=== PATIENT | male | born 1950 | race Caucasian/White ===

== ENCOUNTER 2020-01-15 16:50 | Observation (INO) | payer MEDICARE, BC ==
--- NOTE | 2020-01-15 17:21 | ED ---
General Adult HPI - General Chief complaint: Chest Pain Stated complaint: CHEST PAIN Time Seen by Provider: 01/15/20 17:15 Source: patient Mode of arrival: wheelchair Limitations: no limitations - History of Present Illness Initial comments: Patient presents the ED with his for evaluation. Patient states that he has had 3 bouts of exertional chest pain over the past 3 days. Patient states that his most recent bout was about 45 minutes ago. Patient describes these bouts of chest pain as diffuse chest tightness radiating to his bilateral arms. Patient states that he was also diaphoretic with one of his bouts of chest pain. Patient denies having any other associated symptoms. Patient denies having any chest pain or any symptoms at all currently. Patient denies trauma or injury, fever or chills, headache, focal neuro deficit, neck/jaw pain, back pain, pleuritic pain, dyspnea, cough or cold symptoms, palpitations, dizziness, nausea/vomiting, abdominal pain, leg or calf swelling or pain, or any other symptoms or complaints. Patient has cardiac risk factors of hyperlipidemia and occasional cigar smoking. - Related Data Allergies Allergy/AdvReac Type Severity Reaction Status Date / Time No Known Allergies Allergy Verified 01/15/20 16:59 Review of Systems ROS Statement: Those systems with pertinent positive or pertinent negative responses have been documented in the HPI. ROS Other: All systems not noted in ROS Statement are negative. Past Medical History Past Medical History: Hyperlipidemia History of Any Multi-Drug Resistant Organisms: None Reported Past Surgical History: No Surgical Hx Reported Past Psychological History: No Psychological Hx Reported Smoking Status: Current some day smoker Past Alcohol Use History: Occasional Past Drug Use History: None Reported General Exam Limitations: no limitations General appearance: alert, in no apparent distress Head exam: Present: atraumatic, normocephalic Eye exam: Present: normal appearance, EOMI ENT exam: Present: mucous membranes moist Neck exam: Present: other (Trachea is in midline) Respiratory exam: Present: normal lung sounds bilaterally. Absent: respiratory distress, wheezes, rales, rhonchi, stridor, chest wall tenderness Cardiovascular Exam: Present: regular rate, normal rhythm, normal heart sounds, other (Normal radial pulses bilaterally) GI/Abdominal exam: Present: soft. Absent: distended, tenderness, guarding Extremities exam: Present: other (Negative Homans sign bilaterally). Absent: tenderness, pedal edema, calf tenderness Neurological exam: Present: alert, oriented X3. Absent: motor sensory deficit Psychiatric exam: Present: normal affect, normal mood Skin exam: Present: warm, dry, intact, normal color Course Vital Signs 01/15/20 16:55 Temperature 98.5 F Pulse Rate 75 Respiratory 16 Rate Blood Pressure 133/85 O2 Sat by Pulse 96 Oximetry - Reevaluation(s) Reevaluation #1: 01/15/20 18:49 Case, H&P, test results and ED management were discussed with Dr. Beavers (hospitalist). She accepts hospital admission. She agrees with placing an order for cardiology consultation. She has no further recommendations at this time. 01/15/20 18:52 Patient continues to deny having any chest pain or symptoms while in the ED. Patient remains alert and breathing comfortably. Patient remains in sinus rhythm on the surveillance monitor. Patient and are aware the patient's test results, and patient agrees with hospital admission at this time. EKG Findings - EKG Comments: EKG Findings:: Sinus rhythm with borderline first-degree AV block, ventricular rate of 72 bpm, no ectopy, OH interval of 204 ms, right bundle branch block, QRS duration of 138 ms, normal QT interval, leftward axis, moderate voltage criteria for LVH Medical Decision Making - Medical Decision Making Patient has a heart score 4. Patient has been chest pain-free while in the ED. Patient's initial troponin is negative. Patient's chest x-ray is unremarkable. Dr. Beavers has accepted hospital admission for further evaluation of the patient's chest pain. - Lab Data Result diagrams: 01/15/20 17:37 01/15/20 17:37 Lab Results 01/15/20 01/15/20 01/15/20 Range/Units 17:37 17:37 17:37 WBC 8.9 (3.8-10.6) k/uL RBC 4.94 (4.30-5.90) m/uL Hgb 16.2 (13.0-17.5) gm/dL Hct 47.1 (39.0-53.0) % MCV 95.4 (80.0-100.0) fL MCH 32.8 (25.0-35.0) pg MCHC 34.4 (31.0-37.0) g/dL RDW 12.4 (11.5-15.5) % Plt Count 190 (150-450) k/uL Neutrophils % 65 % Lymphocytes % 27 % Monocytes % 4 % Eosinophils % 1 % Basophils % 1 % Neutrophils # 5.8 (1.3-7.7) k/uL Lymphocytes # 2.4 (1.0-4.8) k/uL Monocytes # 0.4 (0-1.0) k/uL Eosinophils # 0.1 (0-0.7) k/uL Basophils # 0.1 (0-0.2) k/uL PT 10.3 (9.0-12.0) sec INR 1.0 (<1.2) APTT 22.8 (22.0-30.0) sec Sodium 138 (137-145) mmol/L Potassium 4.4 (3.5-5.1) mmol/L Chloride 108 H (98-107) mmol/L Carbon Dioxide 24 (22-30) mmol/L Anion Gap 6 mmol/L BUN 19 (9-20) mg/dL Creatinine 1.00 (0.66-1.25) mg/dL Est GFR (CKD-EPI)AfAm 88 (>60 ml/min/1.73 sqM) Est GFR (CKD-EPI)NonAf 76 (>60 ml/min/1.73 sqM) Glucose 104 H (74-99) mg/dL Calcium 9.0 (8.4-10.2) mg/dL Magnesium 2.2 (1.6-2.3) mg/dL Total Bilirubin 0.8 (0.2-1.3) mg/dL AST 47 (17-59) U/L ALT 36 (4-49) U/L Alkaline Phosphatase 49 (38-126) U/L Troponin I (0.000-0.034) ng/mL NT-Pro-B Natriuret Pep pg/mL Total Protein 6.8 (6.3-8.2) g/dL Albumin 4.1 (3.5-5.0) g/dL 01/15/20 01/15/20 Range/Units 17:37 17:37 WBC (3.8-10.6) k/uL RBC (4.30-5.90) m/uL Hgb (13.0-17.5) gm/dL Hct (39.0-53.0) % MCV (80.0-100.0) fL MCH (25.0-35.0) pg MCHC (31.0-37.0) g/dL RDW (11.5-15.5) % Plt Count (150-450) k/uL Neutrophils % % Lymphocytes % % Monocytes % % Eosinophils % % Basophils % % Neutrophils # (1.3-7.7) k/uL Lymphocytes # (1.0-4.8) k/uL Monocytes # (0-1.0) k/uL Eosinophils # (0-0.7) k/uL Basophils # (0-0.2) k/uL PT (9.0-12.0) sec INR (<1.2) APTT (22.0-30.0) sec Sodium (137-145) mmol/L Potassium (3.5-5.1) mmol/L Chloride (98-107) mmol/L Carbon Dioxide (22-30) mmol/L Anion Gap mmol/L BUN (9-20) mg/dL Creatinine (0.66-1.25) mg/dL Est GFR (CKD-EPI)AfAm (>60 ml/min/1.73 sqM) Est GFR (CKD-EPI)NonAf (>60 ml/min/1.73 sqM) Glucose (74-99) mg/dL Calcium (8.4-10.2) mg/dL Magnesium (1.6-2.3) mg/dL Total Bilirubin (0.2-1.3) mg/dL AST (17-59) U/L ALT (4-49) U/L Alkaline Phosphatase (38-126) U/L Troponin I <0.012 (0.000-0.034) ng/mL NT-Pro-B Natriuret Pep 87 pg/mL Total Protein (6.3-8.2) g/dL Albumin (3.5-5.0) g/dL - Radiology Data Radiology results: image reviewed (Chest x-ray is negative) Disposition Clinical Impression: Chest pain Disposition: ADMITTED IP TO THIS [facility] Condition: Stable Is patient prescribed a controlled substance at d/c from ED?: No Referrals: Werner Seymour DO [Primary Care Provider] - 1-2 days Time of Disposition: 18:50
[2020-01-15] MEDS ORDERED: ASPIRIN 81 MG PO STA (17:30)
[2020-01-15 17:51] LABS: Basophils # (A) 0.1 k/uL (0-0.2); Basophils % (A) 1 %; Eosinophils # (A) 0.1 k/uL (0-0.7); Eosinophils % (A) 1 %; HCT 47.1 % (39.0-53.0); HGB 16.2 gm/dL (13.0-17.5); Lymphocytes # (A) 2.4 k/uL (1.0-4.8); Lymphocytes % (A) 27 %; MCH 32.8 pg (25.0-35.0); MCHC 34.4 g/dL (31.0-37.0); MCV 95.4 fL (80.0-100.0); Mean Platelet Volume 7.3; Monocytes # (A) 0.4 k/uL (0-1.0); Monocytes % (A) 4 %; Neutrophils # (A) 5.8 k/uL (1.3-7.7); Neutrophils % (A) 65 %; Platelet Count 190 k/uL (150-450); RBC 4.94 m/uL (4.30-5.90); RDW 12.4 % (11.5-15.5); WBC 8.9 k/uL (3.8-10.6)
[2020-01-15 18:11] LABS: Albumin 4.1 g/dL (3.5-5.0); Magnesium 2.2 mg/dL (1.6-2.3); Potassium 4.4 mmol/L (3.5-5.1); Total Bilirubin 0.8 mg/dL (0.2-1.3); Total Protein 6.8 g/dL (6.3-8.2)
[2020-01-15 18:17] LABS: Partial Thromboplastin Time 22.8 sec (22.0-30.0); Prothrombin Time 10.3 sec (9.0-12.0)
--- NOTE | 2020-01-15 18:26 | XR ---
EXAMINATION TYPE: XR chest 2V DATE OF EXAM: 01/15/2020 COMPARISON: NONE HISTORY: Pain TECHNIQUE: 2 views FINDINGS: Heart and mediastinum are normal. Lungs are clear. Diaphragm is normal. Bony thorax is inta ct. There are chest leads. IMPRESSION: Normal chest.
--- NOTE | 2020-01-15 21:06 | P.HPIM ---
History of Present Illness H&P Date: 01/15/20 The patient is a 69-year-old male with a PMH of HLD who presented to the ED with complaints of intermittent substernal chest discomfort. Patient reports that he initially had his symptoms 3 days ago while he was washing his nose on a L foot ladder at his home. He developed substernal pressure-like discomfort, unable to quantify, with radiation to the left arm which lasted for 1-2 minutes and res olved spontaneously. He then had similar symptoms yesterday while he was walking up the stairs on his porch, lasting 10-20 seconds and resolved spontaneously. Earlier today however he was sitting down watching television with his when he developed the pain again, but was this time associated with some lightheadedness, resolving within a minute spontaneously. The patient denied experiencing shortness of breath, nausea, diaphoresis, or palpitations during any of the above episodes. He also denied any additional complaints including fever, chills, cough, and abdominal pain, or diarrhea. Patient denied family history of CAD and denied ever having such symptoms in the past. In the emergency room, an EKG revealed normal sinus rhythm at 72 bpm with left axis deviation and right bundle branch block. Chest x-ray was unremarkable. Laboratory evaluation was reviewed with troponin I less than 0.012. Review of Systems Pertinent positives and negatives as discussed in HPI, a complete review of systems was performed and all other systems are negative. Past Medical History Past Medical History: Hyperlipidemia History of Any Multi-Drug Resistant Organisms: None Reported Past Surgical History: No Surgical Hx Reported Past Psychological History: No Psychological Hx Reported Smoking Status: Former smoker Past Alcohol Use History: Occasional Past Drug Use History: None Reported Medications and Allergies Home Medications Medication Instructions Recorded Confirmed Type Atorvastatin [Lipitor] 10 mg PO DAILY 01/15/20 01/15/20 History Multivit-Min/Folic/Vit K/Lycop 1 tab PO DAILY 01/15/20 01/15/20 History [Men's Multivitamin Tablet] Zinc 50 mg PO DAILY 01/15/20 01/15/20 History Allergies Allergy/AdvReac Type Severity Reaction Status Date / Time No Known Allergies Allergy Verified 01/15/20 16:59 Physical Exam Vitals: Vital Signs Temp Pulse Pulse Resp BP BP Pulse Ox 01/15/20 20:30 98 F 57 L 16 138/72 95 01/15/20 18:30 61 17 151/75 94 L 01/15/20 18:00 146/79 01/15/20 17:49 65 18 150/85 94 L 01/15/20 16:55 98.5 F 75 16 133/85 96 Intake and Output 01/15/20 01/15/20 01/15/20 06:59 14:59 22:59 Other: # Voids 1 # Bowel Movements 1 Weight 87.09 kg General: non toxic, no distress, appears at stated age, normal weight Derm: no unusual rashes/lesions no unusual ecchymoses, warm, dry Head: atraumatic, normocephalic, symmetric Eyes: EOMI, no lid lag, anicteric sclera, pupils equal round reactive to light ENT: Nose and ears atraumatic, no thrush, no pharyngeal erythema Neck: No thyromegaly, no cervical lymphadenopathy, trachea midline, supple Mouth: no lip lesion, mucus membranes moist Cardiovascular: S1S2 reg, no murmur, positive posterior tibial pulse bilateral, no edema, capillary refill less than 2 seconds Lungs: CTA bilateral, no rhonchi, no rales , no accessory muscle use Abdominal: soft, nontender to palpation, no guarding, no appreciable organomegaly, normal bowel sounds Ext: no gross muscle atrophy, muscle strength 5 out of 5 in all 4 extremities grossly, no contractures, Neuro: CN II-XI grossly intact, light touch intact all 4 extremities, finger to nose within normal limits, Psych: Alert, oriented, appropriate affect Results CBC & Chem 7: 01/15/20 17:37 01/15/20 17:37 Labs: Abnormal Lab Results - Last 24 Hours (Table) 01/15/20 Range/Units 17:37 Chloride 108 H (98-107) mmol/L Glucose 104 H (74-99) mg/dL Thrombosis Risk Factor Assmnt - Choose All That Apply Each Factor Represents 1 point: Age 41-60 years Thrombosis Risk Factor Assessment Total Risk Factor Score: 1 Thrombosis Risk Factor Assessment Level: Low Risk Assessment and Plan Plan: Chest pain, r/o ACS -Cardiology consult -Cardiac monitoring -Trend troponin -C/w Aspirin, Statin HLD -C/w home statin DVT prophylaxis -Heparin subq The patient is admitted with an anticipated less than 2 midnight stay for evaluation of chest pain CODE STATUS: Full Code Discussed with: Patient Anticipated discharge date: in am Anticipated discharge place:Home A total of 35 minutes was spent on the care of this complex patient more than 50% of the time was spent in counseling and care coordination.
[2020-01-16 05:31] LABS: Basophils % (A) 0 %; Eosinophils # (A) 0.1 k/uL (0-0.7); Eosinophils % (A) 1 %; HCT 43.8 % (39.0-53.0); HGB 14.3 gm/dL (13.0-17.5); Lymphocytes % (A) 34 %; MCH 30.6 pg (25.0-35.0); MCHC 32.7 g/dL (31.0-37.0); MCV 93.4 fL (80.0-100.0); Mean Platelet Volume 6.8; Monocytes # (A) 0.3 k/uL (0-1.0); Monocytes % (A) 6 %; Neutrophils # (A) 3.4 k/uL (1.3-7.7); Neutrophils % (A) 57 %; Platelet Count 172 k/uL (150-450); RBC 4.69 m/uL (4.30-5.90); RDW 12.8 % (11.5-15.5)
[2020-01-16 05:39] LABS: Albumin 3.5 g/dL (3.5-5.0); Calcium 8.7 mg/dL (8.4-10.2); Total Bilirubin 0.4 mg/dL (0.2-1.3); Total Protein 5.6 g/dL (6.3-8.2)
[2020-01-16] MEDS: ATORVASTATIN 10 MG TAB PO SCH (08:44)
[2020-01-16] MEDS: HEPARIN SODIUM,PORCINE 5,000 UNIT/ML 1 ML VIAL SQ SCH ×2 (08:44→15:45)
--- NOTE | 2020-01-16 12:41 | P.CRDCN ---
<Luna Obrien A - Last Filed: 01/16/20 12:45> History of Present Illness Consult date: 01/16/20 Consult reason: chest pain History of present illness: History of present illness: This is a 69-year-old male with past medical history of hyperlipidemia, remote history of tobacco use. He denies any cardiac history and does not follow with the consulting sme. He has never had a stress test or heart catheterization. Patient had an episode 3 days ago when he was washing up her windows on the outside of his house. He develops midsternal chest pain that radiated to both arms and lasted about 1-2 minutes and resolved on its own. He had 2 more episodes, one while walking upstairs and the second while at rest watching TV. He did have some lightheadedness dizziness and diaphoresis at the time of the episodes. Patient denies any symptoms at the time of this evaluation. Updated patient's PCP/[id number]-soe her family request. He is requesting Dr. Galeano performed heart catheterization if indicated. He is requesting a call back. Patient came into [facility] emergency center for evaluation. He was afebrile, heart rate 75, blood pressure 133/85, pulse ox 96% on room air. EKG is a sinus rhythm at 72 bpm, right bundle branch block CBC unremarkable. Electrolytes unremarkable, creatinine 1. Blood sugar 104. Liver function tests are normal. ProBNP 87. Troponins negative on 3 draws. Chest x-ray is normal. (PCP: Dr. Wernre Seymour [phone]) Review Of Systems: At the time of my evaluation: Constitutional: No fever, no chills. No weakness, fatigue or lethargy. EENT: No headache. No dizziness. Lungs: No shortness of breath, cough, no sputum production. No wheezing. Cardiovascular: No chest pain, no lower extremity edema. No palpitations. No paroxysmal nocturnal dyspnea. No orthopnea. No lightheadedness or dizziness. No syncopal episodes. Abdominal: No abdominal pain. No nausea, vomiting. Musculoskeletal: No myalgias. No muscle weakness. Integumentary: No wounds, No unusual bruising. Neurologic: No aphasia. No facial droop. No change in mentation. No head injury. Physical examination: Gen: This is a 69-year-old male. He is resting in bed appears be comfortable and in no acute distress. VS: Afebrile, heart rate 59, blood pressure 132/80, pulse ox 97% on room air. Oral mucous membranes are moist. HEENT: Head is atraumatic, normocephalic. Pupils equal, round. Sclerae is anicteric. NECK: Supple. No JVD. No lymphadenopathy. No thyromegaly. LUNGS: Clear to auscultation. No wheezes or rhonchi. No intercostal retractions. HEART: Regular rate and rhythm. No murmur. ABDOMEN: Soft. Bowel sounds are present. No masses. No tenderness. EXTREMITIES: No pedal edema. No calf tenderness. Dorsalis pedis +2 bila terally. NEUROLOGICAL: Patient is awake, alert and oriented x3. Cranial nerves 2 through 12 are grossly intact. Assessment: Chest pain with symptoms concerning for coronary artery disease with negative troponins Hyperlipidemia Plan: Continue atorvastatin Obtain 2-D echocardiogram and Doppler study to assess cardiac structure and function Further recommendations to follow based upon clinical course Thank you kindly for this consultation. Nurse practitioner note has been reviewed, I agree with documented findings and plan of care. Patient was seen and examined. Past Medical History Past Medical History: Hyperlipidemia History of Any Multi-Drug Resistant Organisms: None Reported Past Surgical History: No Surgical Hx Reported Past Psychological History: No Psychological Hx Reported Smoking Status: Former smoker Past Alcohol Use History: Occasional Past Drug Use History: None Reported Medications and Allergies Home Medications Medication Instructions Recorded Confirmed Type Atorvastatin [Lipitor] 10 mg PO DAILY 01/15/20 01/15/20 History Multivit-Min/Folic/Vit K/Lycop 1 tab PO DAILY 01/15/20 01/15/20 History [Men's Multivitamin Tablet] Zinc 50 mg PO DAILY 01/15/20 01/15/20 History Allergies Allergy/AdvReac Type Severity Reaction Status Date / Time No Known Allergies Allergy Verified 01/15/20 16:59 Physical Exam Vitals: Vital Signs Temp Pulse Pulse Resp BP BP Pulse Ox 01/16/20 09:00 16 01/16/20 08:25 97.9 F 59 L 16 132/80 97 01/16/20 03:00 97.7 F 53 L 16 120/70 97 01/15/20 21:00 57 L 16 01/15/20 20:30 98 F 57 L 16 138/72 95 01/15/20 18:30 61 17 151/75 94 L 01/15/20 18:00 146/79 01/15/20 17:49 65 18 150/85 94 L 01/15/20 16:55 98.5 F 75 16 133/85 96 Intake and Output 01/15/20 01/16/20 01/16/20 22:59 06:59 14:59 Intake Total 100 Balance 100 Intake: Oral 100 Other: Voiding Method Toilet Toilet Toilet # Voids 1 1 # Bowel Movements 1 1 Weight 87.09 kg Results 01/16/20 04:55 01/16/20 04:55 Cardiac Enzymes 01/15/20 01/15/20 01/15/20 Range/Units 17:37 17:37 20:31 AST 47 (17-59) U/L Troponin I <0.012 <0.012 (0.000-0.034) ng/mL 01/15/20 01/16/20 Range/Units 23:44 04:55 AST 44 (17-59) U/L Troponin I <0.012 (0.000-0.034) ng/mL Coagulation 01/15/20 Range/Units 17:37 PT 10.3 (9.0-12.0) sec APTT 22.8 (22.0-30.0) sec CBC 01/15/20 01/16/20 Range/Units 17:37 04:55 WBC 8.9 6.0 (3.8-10.6) k/uL RBC 4.94 4.69 (4.30-5.90) m/uL Hgb 16.2 14.3 (13.0-17.5) gm/dL Hct 47.1 43.8 (39.0-53.0) % Plt Count 190 172 (150-450) k/uL Comprehensive Metabolic Panel 01/15/20 01/16/20 Range/Units 17:37 04:55 Sodium 138 138 (137-145) mmol/L Potassium 4.4 4.0 (3.5-5.1) mmol/L Chloride 108 H 109 H (98-107) mmol/L Carbon Dioxide 24 26 (22-30) mmol/L BUN 19 18 (9-20) mg/dL Creatinine 1.00 1.01 (0.66-1.25) mg/dL Glucose 104 H 113 H (74-99) mg/dL Calcium 9.0 8.7 (8.4-10.2) mg/dL AST 47 44 (17-59) U/L ALT 36 41 (4-49) U/L Alkaline Phosphatase 49 50 (38-126) U/L Total Protein 6.8 5.6 L (6.3-8.2) g/dL Albumin 4.1 3.5 (3.5-5.0) g/dL Current Medications Generic Name Dose Route Start Last Admin Trade Name Freq PRN Reason Stop Dose Admin Atorvastatin Calcium 10 mg 01/16/20 09:00 01/16/20 08:44 Atorvastatin 10 Mg Tab PO 10 mg DAILY CONNOR Administration Heparin Sodium (Porcine) 5,000 unit 01/16/20 08:00 01/16/20 08:44 Heparin Sodium,Porcine 5,000 Unit/Ml 1 Ml Vial SQ 5,000 unit Q8HR CONNOR Administration Intake and Output 01/15/20 01/16/20 01/16/20 22:59 06:59 14:59 Intake Total 100 Balance 100 Intake: Oral 100 Other: Voiding Method Toilet Toilet Toilet # Voids 1 1 # Bowel Movements 1 1 Weight 87.09 kg 01/16/20 04:55 01/16/20 04:55 <Colton Teixeira - Last Filed: 01/16/20 15:49> History of Present Illness History of present illness: Overall somewhat atypical symptoms with 3 episodes over the last week each lasting approximately 30 seconds to 1 minute. Episode was associated with shortness breath, diaphoresis and possible lightheadedness. He has however been able to exercise without difficulty in between these episodes which is not typical of angina. Acute coronary syndrome has been ruled out. We will check a exercise stress echo to rule out significant coronary artery disease. Possible consideration of arrhythmia with some of his symptoms occurring at rest and may consider outpatient event monitor. 2-D echo reviewed with normal ejection fr action without significant valvular disease. If stress test normal, patientmay be discharged home with outpatient follow-up. Spoke with patient's primary doctor, Dr. Seymour over the phone and agreeable with plan. Colton Teixeira D.O. Physical Exam Vitals: Vital Signs Temp Pulse Pulse Resp BP BP Pulse Ox 01/16/20 15:00 97.8 F 58 L 20 135/75 95 01/16/20 09:00 16 01/16/20 08:25 97.9 F 59 L 16 132/80 97 01/16/20 03:00 97.7 F 53 L 16 120/70 97 01/15/20 21:00 57 L 16 01/15/20 20:30 98 F 57 L 16 138/72 95 01/15/20 18:30 61 17 151/75 94 L 01/15/20 18:00 146/79 01/15/20 17:49 65 18 150/85 94 L 01/15/20 16:55 98.5 F 75 16 133/85 96 Intake and Output 01/16/20 01/16/20 01/16/20 06:59 14:59 22:59 Intake Total 100 Balance 100 Intake: Oral 100 Other: Voiding Method Toilet Toilet # Voids 1 1 # Bowel Movements 1 Results 01/16/20 04:55 01/16/20 04:55 Cardiac Enzymes 01/15/20 01/15/20 01/15/20 Range/Units 17:37 17:37 20:31 AST 47 (17-59) U/L Troponin I <0.012 <0.012 (0.000-0.034) ng/mL 01/15/20 01/16/20 Range/Units 23:44 04:55 AST 44 (17-59) U/L Troponin I <0.012 (0.000-0.034) ng/mL Coagulation 01/15/20 Range/Units 17:37 PT 10.3 (9.0-12.0) sec APTT 22.8 (22.0-30.0) sec CBC 01/15/20 01/16/20 Range/Units 17:37 04:55 WBC 8.9 6.0 (3.8-10.6) k/uL RBC 4.94 4.69 (4.30-5.90) m/uL Hgb 16.2 14.3 (13.0-17.5) gm/dL Hct 47.1 43.8 (39.0-53.0) % Plt Count 190 172 (150-450) k/uL Comprehensive Metabolic Panel 01/15/20 01/16/20 Range/Units 17:37 04:55 Sodium 138 138 (137-145) mmol/L Potassium 4.4 4.0 (3.5-5.1) mmol/L Chloride 108 H 109 H (98-107) mmol/L Carbon Dioxide 24 26 (22-30) mmol/L BUN 19 18 (9-20) mg/dL Creatinine 1.00 1.01 (0.66-1.25) mg/dL Glucose 104 H 113 H (74-99) mg/dL Calcium 9.0 8.7 (8.4-10.2) mg/dL AST 47 44 (17-59) U/L ALT 36 41 (4-49) U/L Alkaline Phosphatase 49 50 (38-126) U/L Total Protein 6.8 5.6 L (6.3-8.2) g/dL Albumin 4.1 3.5 (3.5-5.0) g/dL Current Medications Generic Name Dose Route Start Last Admin Trade Name Freq PRN Reason Stop Dose Admin Aspirin 81 mg 01/17/20 09:00 Aspirin 81 Mg PO DAILY [facility] Atorvastatin Calcium 10 mg 01/16/20 09:00 01/16/20 08:44 Atorvastatin 10 Mg Tab PO 10 mg DAILY [facility]NOR Administration Heparin Sodium (Porcine) 5,000 unit 01/16/20 08:00 01/16/20 15:45 Heparin Sodium,Porcine 5,000 Unit/Ml 1 Ml Vial SQ 5,000 unit Q8HR CONNOR Administration Intake and Output 01/16/20 01/16/20 01/16/20 06:59 14:59 22:59 Intake Total 100 Balance 100 Intake: Oral 100 Other: Voiding Method Toilet Toilet # Voids 1 1 # Bowel Movements 1 01/16/20 04:55 01/16/20 04:55
[2020-01-16] MEDS ORDERED: ASPIRIN 81 MG PO STA (13:17)
--- NOTE | 2020-01-16 17:00 | ECHOF ---
Referral Reason:LVF MEASUREMENTS -------- HEIGHT: 177.8 cm WEIGHT: 87.1 kg BP: 132/80 RVIDd: 4.5 cm (< 3.3) IVSd: 1.4 cm (0.6 - 1.1) LVIDd: 4.6 cm (3.9 - 5.3) LVPWd: 1.2 cm (0.6 - 1.1) IVSs: 1.9 cm LVIDs: 2.4 cm LVPWs: 1.9 cm LAESV Index (A-L): 20.39 ml/m Ao Diam: 3.5 cm (2.0 - 3.7) AV Cusp: 2.3 cm (1.5 - 2.6) MV EXCURSION: 23.279 mm (> 18.000) MV EF SLOPE: 50 mm/s (70 - 150) EPSS: 0.2 cm MV E Rito: 0.44 m/s MV DecT: 325 ms MV A Rito: 0.58 m/s MV E/A Ratio: 0.76 RAP: 5.00 mmHg RVSP: 26.35 mmHg FINDINGS -------- This was a technically adequate study. The left ventricular size is normal. Overall left ventricular systolic function is normal with, an EF between 55 - 60 %. The diastolic filling pattern is normal for the age of the patient 7.04. The right ventricle is mildly enlarged. Normal LA size by volume 22+/-6 ml/m2. The right atrium is normal in size. Interatrial and interventricular septum intact. The aortic valve is trileaflet and appears structurally normal. There is no evidence of aortic regu rgitation. There is no evidence of aortic stenosis. There is trace mitral regurgitation. Mild tricuspid regurgitation present. There is no evidence of pulmonary hypertension. The right v entricular systolic pressure, as measured by Doppler, is 26.35mmHg. There is no pulmonic regurgitation present. The aortic root size is normal. Normal inferior vena cava with normal inspiratory collapse consistent with estimated right atrial pre ssure of 5 mmHg. There is no pericardial effusion. CONCLUSIONS -------- 1. The left ventricular size is normal. 2. Overall left ventricular systolic function is normal with, an EF between 55 - 60 %. 3. There is trace mitral regurgitation. 4. Mild tricuspid regurgitation present. NURSES SUPERVISOR: Yoselin Owens RDCS
--- NOTE | 2020-01-16 17:14 | P.PN ---
Subjective Progress Note Date: 01/16/20 Principal diagnosis: Chest pain Patient is doing well today. He denies any chest pain or discomfort. No acute events overnight. Objective - Vital Signs Vital signs: Vital Signs Temp 97.8 F 01/16/20 15:00 Pulse 58 L 01/16/20 15:00 Resp 20 01/16/20 15:00 BP 135/75 01/16/20 15:00 Pulse Ox 95 01/16/20 15:00 Intake & Output 01/15/20 01/16/20 01/16/20 18:59 06:59 18:59 Intake Total 100 Balance 100 Weight 87.09 kg 87.09 kg Intake: Oral 100 Other: Voiding Method Toilet Toilet # Voids 1 1 # Bowel Movements 1 - Exam General: The patient is awake and alert, in no distress Eye: there is normal conjunctiva bilaterally. Neck: The neck is supple, there is no JVD. Cardiovascular: Normal S1-S2, no S3-S4, no murmurs. Respiratory: Lungs clear to auscultation bilaterally Gastrointestinal: Abdomen is soft, nontender Musculoskeletal: There is no pedal edema. Neurological:. Speech is normal. Skin: Skin is warm and dry - Labs CBC & Chem 7: 01/16/20 04:55 01/16/20 04:55 Labs: Abnormal Lab Results - Last 24 Hours (Table) 01/15/20 01/16/20 Range/Units 17:37 04:55 Chloride 108 H 109 H (98-107) mmol/L Glucose 104 H 113 H (74-99) mg/dL Total Protein 5.6 L (6.3-8.2) g/dL Assessment and Plan Assessment: This is a 69-year-old male with past medical history significant for hyperlipidemia who presented to the emergency room with chest pain. Patient is currently placed on observation for further management of his medical problems noted below. 1. Chest pain: Twelve-lead EKG showed no acute ischemic changes. Serial troponin negative 3 sets. Echocardiogram showed preserved ejection fraction with no significant valvular abnormality. Patient was seen and evaluated by cardiology. Plan for cardiac stress test in the morning. 2. Hyperlipidemia: On Lipitor. Fasting lipid profile in the morning 3. DVT prophylaxis with subcu heparin
[2020-01-16 22:21] LABS: Cholesterol 153 mg/dL (<200); HDL Cholesterol 43 mg/dL (40-60); LDL Cholesterol,Calculated 46 mg/dL (0-99); Triglycerides 318 mg/dL (<150)
[2020-01-17] MEDS: HEPARIN SODIUM,PORCINE 5,000 UNIT/ML 1 ML VIAL SQ SCH ×2 (00:08→08:40)
[2020-01-17] MEDS: ATORVASTATIN 10 MG TAB PO SCH (08:40)
[2020-01-17 08:52] VITALS: BP 145/76; PULSE 60; RESP 16; TEMP 97.7
[2020-01-17] MEDS ORDERED: ASPIRIN 81 MG PO SCH (09:00)
--- NOTE | 2020-01-17 09:30 | PN ---
PROGRESS NOTE Mr. Irizarry is a 69-year-old male with a history of hyperlipidemia, who presented with symptoms of chest discomfort. His cardiac enzymes were unremarkable. He had an echocardiogram performed that revealed a preserved ventricular size and systolic function. He is feeling well this morning. He is denying any chest pain. He denies any dizziness or palpitation. He denies any nausea. He continues to be at this time on aspirin once a day, Lipitor 10 mg daily. PHYSICAL EXAMINATION: Blood pressure 138/70 with a heart rate in the 60s. LUNGS: Clear, regular rate and rhythm, S1, S2. No S3. No rub. ABDOMEN: Soft, nontender. EXTREMITIES: No edema. IMPRESSION: 1. Chest discomfort of unclear etiology, has atypical features for ischemic heart disease. 2. Hyperlipidemia. RECOMMENDATION: Will proceed with stress echocardiogram today. If there is no evidence of stress- induced ischemia, then no further cardiac workup will be needed. MMODL / IJN: [id number] /
--- NOTE | 2020-01-17 12:22 | ECHOS ---
STRESS ECHOCARDIOGRAM INDICATIONS: Chest pain. MEDICATIONS: Atorvastatin. BASELINE HEART RATE: 73 BASELINE BLOOD PRESSURE: 142/78 MAXIMUM HEART RATE: 149 MAXIMUM BLOOD PRESSURE: 219/78 85% MPHR: 128 100% MPHR: 150 METS: 11.7 MAXIMUM STAGE REACHED: 4 TOTAL EXERCISE TIME: 10:00 CLINICAL INFORMATION: Baseline rhythm is sinus mechanism, rate of 73, right bundle branch block. Baseline blood pressure 142/78 mmHg. Patient exercised on Crescencio protocol for 10 minutes, reaching peak rate of 149 beats per minute which is equal to 99% of maximum predicted heart rate. Peak blood pressure 219/78 mmHg. Test was terminated due to fatigue. There was no chest pain. Electrocardiograph monitoring revealed no evidence of diagnostic ischemic ST deviation. FINDINGS: Baseline echocardiogram revealed normal wall motion. At peak exercise, there was normal wall motion augmentation with no hypokinesis or dyskinesis. CONCLUSION: 1. Good exercise tolerance with rare PVCs and no evidence of diagnostic ischemic ST deviation. 2. Normal stress echocardiogram with no evidence of stress-induced ischemia. MMODL / IJN: [id number] /
--- NOTE | 2020-01-17 12:57 | P.DS ---
Providers Date of admission: 01/15/20 18:50 Expected date of discharge: 01/17/20 Attending physician: Tammy Catalan DO Consults: 01/15/20 18:51 Consult Physician Urgent Consulting Provider: Gera Galeano Consult Reason/Comments: chest pain Do you want consulting provider notified?: Yes Primary care physician: Wrener Seymour [facility] Course: This is a 69-year-old male with past medical history of hyperlipidemia that presented to the emergency room with chest pain. Patient was evaluated in the ER in 12-lead EKG showed no acute ischemic changes. He was placed in observatio n was seen and evaluated by cardiology. Serial troponin were negative 3 sets. Fasting lipid profile was within acceptable/normal range. Patient underwent a cardiac stress test that was negative. He was cleared by cardiology for discharge. Patient will be discharged home in a stable condition. For further details about this hospitalization please refer to the electronic chart. Time spent on discharge > 30 minutes including counseling and coordination of Patient Condition at Discharge: Fair Plan - Discharge Summary New Discharge Prescriptions: Continue Atorvastatin [Lipitor] 10 mg PO DAILY Zinc 50 mg PO DAILY Multivit-Min/Folic/Vit K/Lycop [Men's Multivitamin Tablet] 1 tab PO DAILY Discharge Medication List Atorvastatin [Lipitor] 10 mg PO DAILY 01/15/20 [History] Multivit-Min/Folic/Vit K/Lycop [Men's Multivitamin Tablet] 1 tab PO DAILY 01/15/20 [History] Zinc 50 mg PO DAILY 01/15/20 [History] Follow up Appointment(s)/Referral(s): Werner Seymour DO [Primary Care Provider] - 1-2 days Discharge Disposition: HOME SELF-CARE
== END 2020-01-17 13:45 | disposition home or self-care (01) ==
LOC: EC 16:50 → 3NCARDOBS 18:50
PROVIDERS: ADMIT Internal Medicine; ATTEND Internal Medicine
DX: I44.0 Atrioventricular block, first degree (principal); I45.10 Unspecified right bundle-branch block; E78.5 Hyperlipidemia, unspecified; F17.200 Nicotine dependence, unspecified, uncomplicated; Z79.899 Other long term (current) drug therapy
CPT/HCPCS: 96372 ×2; 99285; 36415; 93005; 93306; 93351; 83880; 80061; 80053 ×2; 83735; 84484; 85025 ×2; 85610; 85730; 71046; G0378 ×3; J1644 ×2

== ENCOUNTER → 2020-07-28 | Outpatient (CLI) | payer MEDICARE, BC | END | disposition home or self-care (01) | LOC: LABWHC1 16:40 | PROVIDERS: ATTEND Internal Medicine | DX: Z20.822 Contact with and (suspected) exposure to COVID-19 (principal) | CPT/HCPCS: U0003; C9803; U0005 ==

== ENCOUNTER 2022-07-03 07:42 | Day surgery (SDC) | payer MEDICARE, BC ==
[2022-07-02 08:18] VITALS: BMI 27.2
[2022-07-03] MEDS: LACTATED RINGERS 1,000 ML IV SCH ×2 (08:02→09:10)
[2022-07-03 08:07] VITALS: RESP 16; TEMP 97.5
[2022-07-03] MEDS ORDERED: PROPOFOL 10 MG/ML 20 ML VIAL IV ONE (09:12)
[2022-07-03] MEDS ORDERED: LIDOCAINE 2% INJ 20 MG/ML (2 ML VIAL) ONE (09:12)
--- NOTE | 2022-07-03 09:41 | P.PCN ---
Date of Procedure: 07/03/22 Procedure(s) Performed: Brief history: Patient is a pleasant 71-year-old white male scheduled for an elective upper endoscopy as well as colonoscopy as a part of evaluation of GERD and prior history of colon polyps. Procedure performed: Esophagogastroduodenoscopy with biopsy Colonoscopy with snare polypectomy Preoperative diagnosis: GERD History of colon polyps Anesthesia: MAC Procedure: After informed consent was obtained from the patient was brought into the endoscopy unit and IV sedation was administered by anesthesia under continuous monitoring. Initially upper endoscopy was done. The Olympus GF 160 video endoscope was inserted inserted into the mouth and esophagus intubated without any difficulty and was gradually advanced into the stomach and duodenum and carefully examined. The bulb and second part of the duodenum appeared normal. The scope was then withdrawn into the stomach adequately insufflated with air and upon careful examination the antrum had mild gastritis and biopsies were done from this area. Mucosa of the body, cardia and fundus appeared normal. The scope was then withdrawn into the esophagus. Small hiatal hernia noted. The GE junction was located at 40 cm to the incisors. It appeared regular with no erythema erosions or ulcerations. Rest of the esophagus appeared normal. Patient tolerated the procedure well. At this time the patient continued to remain sedation. Initial digital rectal examination was normal. Olympus CF 160 video colonoscope was then inserted into the rectum and gradually advanced to the cecum without any difficulty. Careful examination was performed as the scope was gradually being withdrawn. The prep was excellent. The cecum, ascending colon, appeared normal. The hepatic flexure there was a 3 mm and 5 minute a polyp smaller by snare polypectomy. In the transverse colon there was a 7 mm polyp removed by snare polypectomy. Rest of the transverse colon, descending colon, sigmoid colon and rectum appeared normal. scattered diffuse diverticulosis. Retroflexion was performed in the rectum and no lesions were noted. Patient tolerated the procedure well. Impression: 1. Upper endoscopy revealed mild antral gastritis and a small hiatal hernia 2. Colonoscopy revealed 3 mm and 5 mm hepatic flexure polyp status post polypectomy, 7 mm transverse colon polyp status post polypectomy and scattered diffuse diverticulosis Recommendations: Findings of this examination were discussed with the patient as well as his family. He was advised to follow with the biopsy. Continue with AcipHex 20 mg daily and follow antireflux measures. Recommend repeat colonoscopy in 5 years.
[2022-07-03 10:01] VITALS: BP 116/73; PULSE 57
== END 2022-07-03 10:18 | disposition home or self-care (01) ==
LOC: ORWHC2ENDO 07:42
PROVIDERS: ATTEND Internal Medicine Gastroenterology
DX: Z12.11 Encounter for screening for malignant neoplasm of colon (principal); D12.3 Benign neoplasm of transverse colon; K29.50 Unspecified chronic gastritis without bleeding; K57.30 Diverticulosis of large intestine without perforation or abscess without bleeding; K21.9 Gastro-esophageal reflux disease without esophagitis; I10 Essential (primary) hypertension; E78.5 Hyperlipidemia, unspecified; F12.90 Cannabis use, unspecified, uncomplicated; Z79.899 Other long term (current) drug therapy; Z86.010 Personal history of colon polyps
CPT/HCPCS: 88305; 45385; 43239; J2704; J2001